=== PATIENT | female | born 1980 | race Caucasian/White ===

== ENCOUNTER 2017-01-28 13:08 | Emergency (ER) | payer MEDICAID ==
[~2017-01-28] VITALS: Ht 162.6 cm; Wt 98.0 kg
[~2017-01-28 13:08] MED LIST: ACET325T14 PO; CRAN200C5 PO; IBUP200T5 PO; NITR100C56 PO; PREN1COM11 PO; PREN1TAB60
[2017-01-28 13:10] VITALS: BP 112/77
[2017-01-28] MEDS ORDERED: METHYLNALTREXONE 12 MG/0.6 ML SQ ONE (13:30)
== END 2017-01-28 15:00 | disposition home or self-care (01) ==
LOC: ED 14:54
DX: K59.00 Constipation, unspecified (principal); F11.99 Opioid use, unspecified with unspecified opioid-induced disorder; Z90.49 Acquired absence of other specified parts of digestive tract
CPT/HCPCS: 96372